=== PATIENT | male | born 1980 | race Caucasian/White ===

== ENCOUNTER 2018-06-17 17:42 | Emergency (ER) | payer BC ==
[~2018-06-17] VITALS: Ht 180.3 cm; Wt 191.9 kg
[2018-06-17 17:57] VITALS: Ht 180.3 cm; Wt 191.9 kg
[2018-06-17 18:48] LABS: BASOPHIL % 0.5 % (0-2); PLATELET COUNT 247 x10^3mcL (130-400)
[2018-06-17 18:49] LABS: RED CELL DISTRIBUTION WIDTH 15.1 % (11.5-14.5)
[2018-06-17 18:57] VITALS: BP 137/82
[2018-06-17 18:59] LABS: CALCIUM 8.7 mg/dL (8.5-10.1); CARBON DIOXIDE 25.8 mmol/L (21-32); CHLORIDE SERUM 102 mmol/L (98-107); CREATININE SERUM 1.2 mg/dL (0.7-1.3); GFR1 > 60 mL/min; GLUCOSE SERUM 131 mg/dL (74-106); POTASSIUM SERUM 3.9 mmol/L (3.5-5.1); SODIUM SERUM 136 mmol/L (136-145)
[2018-06-17 19:03] LABS: ALKALINE PHOSPHATASE 129 U/L (46-116); ALT/SGPT 60 U/L (16-63); AST/SGOT 33 U/L (15-37); BILIRUBIN TOTAL 1.01 mg/dL (0.20-1.00); TOTAL PROTEIN, SERUM 6.8 g/dL (6.4-8.2)
[2018-06-17 19:05] LABS: ALBUMIN 3.2 g/dL (3.4-5.0)
== END 2018-06-17 20:08 | disposition home or self-care (01) ==
LOC: ED 17:42
PROVIDERS: Emergency Medicine
DX: L03.116 Cellulitis of left lower limb (principal); L03.115 Cellulitis of right lower limb; Z88.8 Allergy status to other drugs, medicaments and biological substances
CPT/HCPCS: J0696; J1885; Q0092